=== PATIENT | male | born 1950 | race Caucasian/White ===

== ENCOUNTER 2019-06-23 06:24 | Inpatient (IN) ==
[2019-06-20 18:19] LABS: Amphetamine Screen,Urine NONE DETECTED (NONDETECTED); Barbiturate Screen,Urine NONE DETECTED (NONDETECTED); Benzodiazepines Screen,Urine NONE DETECTED (NONDETECTED); Cannabinoid Screen,Urine SUSPECT POSITIVE (NONDETECTED); Cocaine Screen,Urine NONE DETECTED (NONDETECTED); Opiate Screen,Urine NONE DETECTED (NONDETECTED); Oxycodone, Urine Screen NONE DETECTED (NONDETECTED); Phencyclidine Screen,Urine NONE DETECTED (NONDETECTED)
--- NOTE | 2019-06-20 18:32 | XRay Report ---
HISTORY: Preop for hernia repair FINDINGS: Patient has moderate COPD with pulmonary fibrosis. There are several bulla in the right upper lobe. There is no evidence of pneumonia, mass or congestive heart failure. The heart size is normal. No adenopathy is seen. Comparison with the prior chest CT done on 05/30/13 shows the COPD and pulmonary fibrosis have become worse. IMPRESSION: COPD with pulmonary fibrosis Interpreted and Authenticated by: Kyle Sargent 06/20/19
[2019-06-20 19:30] LABS: Basophils # (Auto) 0 K/mcL (0.0-0.3); Basophils % (Auto) 0.5 % (0.0-2.0); Eosinophils # (Auto) 0.1 K/mcL (0.0-0.7); Granulocytes % (Auto) 58.5 % (38.0-78.0); Hematocrit 47.6 % (41.0-55.0); Lymphocytes # (Auto) 2.8 K/mcL (1.5-4.8); Lymphocytes % (Auto) 32.8 % (15.5-49.0); Mean Cell Volume 95.9 fL (80.0-100.0); Mean Corpuscular HGB Conc 33.7 g/dL (31.0-36.0); Mean Platelet Volume 8.7 fL (7.4-10.4); Monocytes # (Auto) 0.6 K/mcL (0.1-0.9); Monocytes % (Auto) 7.2 % (1.0-12.0); Platelet Count 217 K/mcL (140-440); RBC 4.96 M/mcL (4.50-5.90); Red Cell Distribution Width 14.6 % (11.5-14.5); WBC 8.4 K/mcL (4.5-11.0)
[2019-06-20 19:49] LABS: ALT/SGPT 8 U/l (0-40); AST/SGOT 14 U/l (0-37); Albumin 4.5 gm/dL (3.2-5.2); Albumin/Globulin Ratio 1.4 (1.0-2.3); Alkaline Phosphatase 89 U/L (39-117); Bilirubin,Total 0.3 mg/dL (0.0-1.0); Blood Urea Nitrogen 6 mg/dl (8-23); Calcium 10.1 mg/dl (8.6-10.4); Carbon Dioxide 25 mmol/L (22-30); Chloride 99 mmol/L (96-108); Globulin 3.3 gm/dL (2.2-3.7); Glomerular Filtration Rate 89; Glucose 86 mg/dL (70-105)
[2019-06-20 19:50] LABS: INR 0.9 (0.9-1.1); Prothrombin Time 12.6 sec (11.9-14.5)
[2019-06-22 11:38] LABS: Alcohol, Blood < 10.0 mg/dL (<10); Alcohol,Blood < 0.010 gm/dl (<0.010)
[~2019-06-23 06:24] MED LIST: metroNIDAZOLE 500 MG/100 ML BAG IV SCH
[2019-06-23] MEDS ORDERED: VANCOMYCIN 1,000 MG in 0.9 % SODIUM CHLORIDE 250 ML IV SCH (07:00)
[2019-06-23] MEDS ORDERED: metroNIDAZOLE 500 MG/100 ML BAG IV SCH (07:00)
[2019-06-23] MEDS ORDERED: PHENYLEPHRINE 10 MG/ML VIAL IV ONE (08:55)
[2019-06-23] MEDS ORDERED: HYDROmorphone 2 MG/ML VIAL IV ONE (08:55)
[2019-06-23] MEDS ORDERED: KETAMINE 100 MG/ML ML IV ONE (08:55)
[2019-06-23] MEDS ORDERED: MIDAZOLAM 2 MG/2 ML VIAL IV ONE (08:55)
[2019-06-23] MEDS ORDERED: ROCURONIUM 10 MG/ML ML IV ONE (08:55)
[2019-06-23] MEDS ORDERED: ROPIVACAINE HCL/PF 30 ML VIAL IJ ONE (08:55)
[2019-06-23] MEDS ORDERED: PROPOFOL 200 MG/20 ML VIAL IV ONE (08:55)
[2019-06-23] MEDS ORDERED: SUGAMMADEX SODIUM 200 MG/2 ML VIAL IV ONE (08:55)
[2019-06-23] MEDS ORDERED: LIDOCAINE HCL/PF 100 MG/5 ML SYRINGE IV ONE (08:55)
[2019-06-23] MEDS ORDERED: GLYCOPYRROLATE 0.2 MG/ML VIAL IV ONE (08:55)
[2019-06-23] MEDS ORDERED: ONDANSETRON 4 MG/2 ML VIAL IV ONE (08:55)
[2019-06-23] MEDS ORDERED: BACITRACIN 50,000 UNIT VIAL IR ONE (09:20)
--- NOTE | 2019-06-23 10:49 | Brief Operative Note ---
Date of procedure: 06/23/19 Pre-op diagnosis: incisional hernia Post-op diagnosis: other (incisional hernia) Procedure: incisional hernia repair with mesh (15x22) Grafts/Implants: Yes (surgimesh [id number] oval skirted graft) Anesthesia: GETA Findings: total separation of incision from xyphoid to pubis extensive intraabdominal adhesions Complications: none Surgeon: Sharron Carlos Estimated blood loss (cc): 25 Specimens Removed/Pathology: none sent Condition: stable Disposition: PACU
[2019-06-23] MEDS ORDERED: ONDANSETRON 4 MG/2 ML VIAL IV PRN ×2 (10:51→11:00)
[2019-06-23] MEDS ORDERED: LORazepam 2 MG/ML VIAL IV PRN (10:58)
[2019-06-23] MEDS ORDERED: MEPERIDINE 25 MG/ML SYRINGE IV PRN (11:00)
[2019-06-23] MEDS ORDERED: ACETAMINOPHEN 1,000 MG/100 ML BOTTLE IV ONE (11:00)
[2019-06-23] MEDS ORDERED: BENZOCAINE/MENTHOL 1 LOZENGE PO PRN (11:00)
[2019-06-23] MEDS ORDERED: KETOROLAC 15 MG/ML VIAL IV PRN (11:00)
[2019-06-23] MEDS ORDERED: LORazepam 2 MG/ML VIAL IV ONE (11:00)
[2019-06-23] MEDS ORDERED: METOPROLOL TARTRATE 5 MG/5 ML VIAL IV PRN (11:00)
[2019-06-23] MEDS ORDERED: LACTATED RINGERS 1,000 ML IV SCH (11:00)
[2019-06-23] MEDS ORDERED: IPRATROPIUM/ALBUTEROL 3 ML AMPUL.NEB NEB PRN (11:00)
[2019-06-23] MEDS ORDERED: METHOCARBAMOL 1,000 MG/10 ML VIAL IV PRN (11:00)
[2019-06-23] MEDS ORDERED: HYDROmorphone 2 MG/ML VIAL IV PRN (11:00)
[2019-06-23] MEDS: fentaNYL 100 MCG/2 ML VIAL IV PRN ×2 (11:02→11:04)
[2019-06-23] MEDS ORDERED: fentaNYL 100 MCG/2 ML VIAL IV ONE (11:05)
[2019-06-23] MEDS: 0.9 % SODIUM CHLORIDE 1,000 ML IV SCH (12:01)
[2019-06-23] MEDS: 0.9 % SODIUM CHLORIDE 10 ML SYRINGE IV SCH ×2 (12:05→20:42)
[2019-06-23] MEDS: METOCLOPRAMIDE 10 MG/2 ML VIAL IV SCH ×3 (12:09→23:11)
[2019-06-23] MEDS: cefOXitin 2 GM VIAL IV SCH ×2 (12:09→20:42)
[2019-06-23] MEDS: HYDROmorphone 2 MG/ML VIAL IV PRN (20:19)
[2019-06-23] MEDS: VANCOMYCIN 1,000 MG in 0.9 % SODIUM CHLORIDE 250 ML IV SCH (20:41)
[2019-06-24] MEDS: 0.9 % SODIUM CHLORIDE 1,000 ML IV SCH ×2 (02:00→17:24)
[2019-06-24] MEDS: HYDROmorphone 2 MG/ML VIAL IV PRN ×5 (04:08→20:08)
[2019-06-24] MEDS: 0.9 % SODIUM CHLORIDE 10 ML SYRINGE IV SCH ×3 (04:09→20:08)
[2019-06-24] MEDS: METOCLOPRAMIDE 10 MG/2 ML VIAL IV SCH ×4 (05:45→23:13)
[2019-06-24 06:00] LABS: Basophils # (Auto) 0 K/mcL (0.0-0.3); Basophils % (Auto) 0.3 % (0.0-2.0); Eosinophils # (Auto) 0.1 K/mcL (0.0-0.7); Eosinophils % (Auto) 1.1 % (0.0-7.0); Granulocytes % (Auto) 68.7 % (38.0-78.0); Hematocrit 37.6 % (41.0-55.0); Hemoglobin 12.6 g/dL (13.5-16.5); Lymphocytes # (Auto) 1.6 K/mcL (1.5-4.8); Lymphocytes % (Auto) 24.4 % (15.5-49.0); Mean Cell Volume 97.2 fL (80.0-100.0); Mean Corpuscular HGB Conc 33.5 g/dL (31.0-36.0); Mean Platelet Volume 8.4 fL (7.4-10.4); Monocytes # (Auto) 0.4 K/mcL (0.1-0.9); Monocytes % (Auto) 5.5 % (1.0-12.0); Platelet Count 161 K/mcL (140-440); RBC 3.87 M/mcL (4.50-5.90); Red Cell Distribution Width 14.5 % (11.5-14.5); WBC 6.6 K/mcL (4.5-11.0)
[2019-06-24] MEDS: cefOXitin 2 GM VIAL IV SCH ×2 (08:12→20:07)
[2019-06-24] MEDS: VANCOMYCIN 1,000 MG in 0.9 % SODIUM CHLORIDE 250 ML IV SCH ×2 (09:23→20:07)
--- NOTE | 2019-06-24 11:58 | General Surgery Progress Note ---
Subjective Patient reports: feels better, still having pain, no flatus, no bowel movement, afebrile Narrative: Note initiated : 06/24/19 at 11:56 am Service Date, if different from initiated Date: [] Patient: Law Fish 68 y/o M admitted on 06/23/19 for Incisional Hernia Repair with Mesh. Chief Complaint: [Patient is doing amazingly well. He is alert and oriented 3. He does not have any irritation or agitation. He denies shortness of breath. He does have mild nausea which will be treated with Phenergan. Blood pressure 129/75, pulse 79. White blood count 6.6, hemoglobin 12.6, potassium 3.8, BUN 6, creatinine 0.9.] Objective Temp Pulse Resp BP Pulse Ox 98.4 F 66 20 129/75 93 06/24/19 11:43 06/24/19 04:12 06/24/19 11:43 06/24/19 11:43 06/24/19 11:43 - Additional Data Intake & Output - Last 24 hours: Intake & Output 06/22/19 06/23/19 06/24/19 06/25/19 05:59 05:59 05:59 05:59 Intake Total 3500 Output Total 1345 215 Balance 2155 -215 Weight 118 lb 8 oz 118 lb 8 oz - General physical appearance no distress, moderate pain - Eyes PERRL, normal ocular movement - ENT normal pinna, normal nares, normal mucosa, no hearing loss, no congestion - Neck no masses, no bruits, trachea midline, no lymphadenopathy, no venous distension - Respiratory normal expansion, normal respiratory effort, clear to auscultation - Cardiovascular Cardiovascular exam: Present: normal rate and rhythm, RRR, +S1, +S2. Absent: t achycardia - Abdomen tender (mild tenderness of the incision but otherwise abdomen is benign; he has good active bowel sounds; JOSEFINA drainage is serosanguineous) - Integumentary no rash, no growths, no abnormal pigmentation - Neurologic normal coordination, normal sensation - Musculoskeletal normal gait, normal posture - Psychiatric oriented to time, oriented to person, oriented to place, speech is normal, memory intact - Labs 06/24/19 04:45 06/20/19 16:31 Assessment and Plan (1) Incisional hernia of anterior abdominal wall without obstruction or gangrene Status: Acute Assessment and plan: Patient is clinically stable. His nausea will be treated with IV Phenergan. IV will be decreased to 50 cc/h Current Visit: Yes (2) Chronic alcoholism Status: Acute Assessment and plan: Continue beer up to 4 cans per day Current Visit: Yes - Time Spent With Patient Total time spent is greater than 50% in coordination of care (as documented) at patient's floor/unit and/or counseling patient:
[2019-06-24] MEDS: oxyCODONE HCL 5 MG TABLET PO PRN ×3 (13:51→23:14)
[2019-06-25] MEDS: HYDROmorphone 2 MG/ML VIAL IV PRN ×5 (00:43→20:11)
[2019-06-25] MEDS: METOCLOPRAMIDE 10 MG/2 ML VIAL IV SCH ×4 (05:12→23:54)
[2019-06-25] MEDS: 0.9 % SODIUM CHLORIDE 10 ML SYRINGE IV SCH ×3 (05:12→20:19)
[2019-06-25] MEDS: oxyCODONE HCL 5 MG TABLET PO PRN ×3 (07:53→23:54)
[2019-06-25] MEDS: 0.9 % SODIUM CHLORIDE 1,000 ML IV SCH (08:41)
[2019-06-25] MEDS: cefOXitin 2 GM VIAL IV SCH ×2 (08:51→20:10)
[2019-06-25] MEDS: VANCOMYCIN 1,000 MG in 0.9 % SODIUM CHLORIDE 250 ML IV SCH ×2 (08:51→20:11)
--- NOTE | 2019-06-25 14:22 | General Surgery Progress Note ---
Subjective Patient reports: feels better, pain is less, voiding w/o difficulty, flatus, no bowel movement, afebrile Narrative: Note initiated : 06/25/19 at 2:20 pm Service Date, if different from initiated Date: [] Patient: Law Fish 68 y/o M admitted on 06/23/19 for Incisional Hernia Repair with Mesh. Chief Complaint: [patient continues to do well he is afebrile. He has started to pass flatus but has not had a bowel movement. He denies nausea. His pain is controlled with present IV and oral analgesics.] Objective Temp Pulse Resp BP Pulse Ox 98.2 F 69 12 119/73 96 06/25/19 11:24 06/25/19 11:24 06/25/19 11:24 06/25/19 11:24 06/25/19 11:24 - Additional Data Intake & Output - Last 24 hours: Intake & Output 06/23/19 06/24/19 06/25/19 06/26/19 05:59 05:59 05:59 05:59 Intake Total 3500 3180 1580 Output Total 1345 2305 750 Balance 2155 875 830 Weight 118 lb 8 oz 118 lb 8 oz - General physical appearance well developed, well nourished, no distress - Eyes PERRL, normal ocular movement - ENT normal pinna, normal nares, normal mucosa, no hearing loss, no congestion - Neck no masses, no bruits, trachea midline, no lymphadenopathy, no venous distension - Respiratory normal expansion, normal respiratory effort, clear to auscultation, other (good active breath sounds bilaterally) - Cardiovascular Cardiovascular exam: Present: normal rate and rhythm, RRR, +S1, +S2. Absent: JVD, tachycardia - Abdomen tender ( mild incisional tenderness; incision looks good; active bowel sounds; JOSEFINA drainage with serosanguineous drainage) - Integumentary no rash, no growths, no abnormal pigmentation - Neurologic normal coordination, normal sensation - Musculoskeletal normal gait, normal posture - Psychiatric oriented to time, oriented to person, oriented to place, speech is normal, memory intact - Labs 06/24/19 04:45 06/20/19 16:31 Assessment and Plan (1) Incisional hernia of anterior abdominal wall without obstruction or gangrene Status: Acute Assessment and plan: Patient is clinically stable. Full liquid diet Saline lock IV Check labs in the morning Current Visit: Yes (2) Chronic alcoholism Status: Acute Assessment and plan: Continue beer up to 4 cans per day Current Visit: Yes - Time Spent With Patient Total time spent is greater than 50% in coordination of care (as documented) at patient's floor/unit and/or counseling patient:
[2019-06-26] MEDS: HYDROmorphone 2 MG/ML VIAL IV PRN (03:25)
[2019-06-26] MEDS: 0.9 % SODIUM CHLORIDE 10 ML SYRINGE IV SCH ×2 (05:01→12:21)
[2019-06-26] MEDS: METOCLOPRAMIDE 10 MG/2 ML VIAL IV SCH ×2 (05:01→11:24)
[2019-06-26 06:01] LABS: Basophils # (Auto) 0 K/mcL (0.0-0.3); Basophils % (Auto) 0.6 % (0.0-2.0); Eosinophils # (Auto) 0.2 K/mcL (0.0-0.7); Eosinophils % (Auto) 2.8 % (0.0-7.0); Granulocytes % (Auto) 56.4 % (38.0-78.0); Hematocrit 36.1 % (41.0-55.0); Hemoglobin 12.1 g/dL (13.5-16.5); Lymphocytes # (Auto) 1.8 K/mcL (1.5-4.8); Lymphocytes % (Auto) 30.5 % (15.5-49.0); Mean Cell Volume 97.4 fL (80.0-100.0); Mean Corpuscular HGB Conc 33.5 g/dL (31.0-36.0); Mean Platelet Volume 8.5 fL (7.4-10.4); Monocytes # (Auto) 0.6 K/mcL (0.1-0.9); Monocytes % (Auto) 9.7 % (1.0-12.0); Platelet Count 151 K/mcL (140-440); Red Cell Distribution Width 14.5 % (11.5-14.5)
[2019-06-26] MEDS: oxyCODONE HCL 5 MG TABLET PO PRN ×3 (07:28→16:53)
[2019-06-26 08:00] LABS: ALT/SGPT 6 U/l (0-40); AST/SGOT 13 U/l (0-37); Albumin 3.1 gm/dL (3.2-5.2); Albumin/Globulin Ratio 1.3 (1.0-2.3); Alkaline Phosphatase 65 U/L (39-117); Bilirubin,Direct < 0.2 mg/dL (0.0-0.3); Bilirubin,Total 0.3 mg/dL (0.0-1.0); Blood Urea Nitrogen 3 mg/dl (8-23); Calcium 9.3 mg/dl (8.6-10.4); Carbon Dioxide 25 mmol/L (22-30); Chloride 107 mmol/L (96-108); Globulin 2.4 gm/dL (2.2-3.7); Glomerular Filtration Rate 105; Glucose 99 mg/dL (70-105); Lactate Dehydrogenase 183 U/L (94-250); Phosphorous 2.4 mg/dL (2.7-4.5); Triglycerides 92 mg/dl (<150); Uric Acid 3.3 mg/dL (2.5-8.0)
[2019-06-26] MEDS: cefOXitin 2 GM VIAL IV SCH (09:14)
[2019-06-26] MEDS: VANCOMYCIN 1,000 MG in 0.9 % SODIUM CHLORIDE 250 ML IV SCH (09:14)
--- NOTE | 2019-06-26 15:04 | Discharge Summary ---
Providers - Providers Patient information: Note initiated : 06/26/19 at 3:00 pm Service Date, if different from initiated Date: [] Patient: Law Fish 68 y/o M admitted on 06/23/19 for Incisional Hernia Repair with Mesh. Chief Complaint: [] Date of admission: 06/23/19 Discharge date: 06/26/19 Attending physician: Sharron Carlos Hospitalization Hospital Course: 68-year-old male status post incisional hernia repair with mesh graft on 23 June 2019. She was found to have total separation of her midline incision from xiphoid to pubis with retraction of her muscle layers bilaterally. he had a 16 cm fascial defect at its greatest diameter. The patient had drains placed between the graft and the fascia as well as in the subcutaneous plane over the muscle. The drains have gradually decreased in size. A drain in the subcutaneous time he is playing is more serous. He has had flatus but no bowel movement. He is tolerating full liquid diet without difficulty. He has been afebrile. Patient has a history of chronic alcoholism. He drinks up to 12 beers per day every day. I have supplemented him with beer up to 4 beers per day and he has done well without any evidence of withdrawal. He is advised to try to limit his beer to 4-6 per day over the next 2 weeks. He will be followed up in the office in 2 weeks. Discharge diagnosis: incisional hernia Secondary discharge diagnosis: Chronic alcoholism Extensive intra-abdominal adhesions History of prostate cancer Peripheral nerve disease Major depression Reason for admission: postoperative major incisional hernia Procedures: Incisional hernia repair with mesh graft -- 15 x 22 cm skirted oval surgimesh Complications: 9 Exam Temp Pulse Resp BP Pulse Ox 98.4 F 72 16 144/80 98 06/26/19 11:31 06/26/19 11:31 06/26/19 11:31 06/26/19 11:31 06/26/19 11:31 - General physical appearance well developed, well nourished, no distress, no pain - Eyes PERRL, normal ocular movement - ENT normal pinna, normal nares, normal mucosa, no hearing loss, no congestion - Head Head exam IM: Present: atraumatic, normocephalic - Neck no masses, no bruits, trachea midline, no lymphadenopathy, no venous distension - Cardiovascular Cardiovascular exam IM: Present: normal rate and rhythm, RRR, +S1, +S2. Absent: JVD, tachycardia - Respiratory normal expansion, normal respiratory effort, clear to percussion, clear to auscultation - Abdomen Abdomen: Present: soft, tender (tender incision; good active bowel sounds; skin flaps look good; 2 JOSEFINA drains with serosanguineous drainage), bowel sounds Hernia: Present: none - Genitourinary Present: normal penis with no external lesions - Integumentary Present: no rash, no growths, no abnormal pigmentation - Neurologic Present: normal coordination, normal sensation - Musculoskeletal Present: normal gait, normal posture - Psychiatric Present: oriented to time, oriented to person, oriented to place, speech is normal, memory intact Discharge Plan - Patient/Caregiver Discharge Instructions Activity: increase activity as tolerated Diet: Regular Diet Additional Instructions: Leave dressing in place until your return to the office If the dressing gets wet contact the office to have the dressing changed Him to the JOSEFINA drain bulbs once or twice daily as needed Do not allow the bulbs to angle from the skin. attached the bulbs to your clothing so that they do not pull on the drains Try your best not to drink over 4 beers per day Prescriptions: oxyCODONE HCL/ACETAMINOPHEN [Endocet 10-325 mg Tablet] 1 tab PO Q4H PRN #90 tab PRN Reason: Pain Prescription Printed oxyCODONE HCL/ACETAMINOPHEN [Endocet 10-325 mg Tablet] 1 tab PO Q4H PRN #30 tab PRN Reason: Pain Prescription Printed - Follow up Plan Follow up with: Sharron Carlos MD [Physician] - 07/10/19 10:00 am Disposition: Home, Self-Care Prognosis: Good Rehab Potential: Good I certify that the patient requires SNF services.: No Overall status at discharge: patient is not back to baseline Pending Studies Resuscitation Status Full Code Diet Full Liquid Diet Start Sun Jun 25 1423 Cefoxitin Sodium (Mefoxin) 2 gm IV Q12H [facility]; Protocol Last Admin: 06/26/19 09:14 Dose: 2 gm Documented by: Admin: 06/25/19 20:10 Dose: 2 gm Documented by: Admin: 06/25/19 08:51 Dose: 2 gm Documented by: [email or web address] Admin: 06/24/19 20:07 Dose: 2 gm Documented by: Admin: 06/24/19 08:12 Dose: 2 gm Documented by: [facility] Admin: 06/23/19 20:42 Dose: 2 gm Documented by: Admin: 06/23/19 12:09 Dose: 2 gm Documented by: HANSEL Hydromorphone HCl (Dilaudid) 1 mg IV Q4HP PRN PRN Reason: PAIN LEVEL > 6 Last Admin: 06/26/19 03:25 Dose: 1 mg Documented by: Admin: 06/25/19 20:11 Dose: 1 mg Documented by: Admin: 06/25/19 15:48 Dose: 1 mg Documented by: [facility] Admin: 06/25/19 09:41 Dose: 1 mg Documented by: [facility] Admin: 06/25/19 04:46 Dose: 1 mg Documented by: Admin: 06/25/19 00:43 Dose: 1 mg Documented by: Admin: 06/24/19 20:08 Dose: 1 mg Documented by: Admin: 06/24/19 16:03 Dose: 1 mg Documented by: [facility] Admin: 06/24/19 12:00 Dose: 1 mg Documented by: [facility] Admin: 06/24/19 08:11 Dose: 1 mg Documented by: [facility] Admin: 06/24/19 04:08 Dose: 1 mg Documented by: Admin: 06/23/19 20:19 Dose: 1 mg Documented by: RJAENDRA Vancomycin HCl 1,000 mg/ (Sodium Chloride) 250 mls @ 250 mls/hr IV Q12H [facility]; Protocol Stop: 06/27/19 21:59 Last Infusion: 06/26/19 12:21 Dose: 0 mls/hr Documented by: Admin: 06/26/19 09:14 Dose: 250 mls/hr Documented by: Infusion: 06/25/19 21:11 Dose: 250 mls/hr Documented by: Admin: 06/25/19 20:11 Dose: 250 mls/hr Documented by: Infusion: 06/25/19 10:00 Dose: 0 mls/hr Documented by: [facility] Admin: 06/25/19 08:51 Dose: 250 mls/hr [facility]ed [facility]: [facility] Infusion: 06/24/19 21:15 Dose: 0 mls/hr Documented by: Admin: 06/24/19 20:07 Dose: 250 mls/hr Documented by: Infusion: 06/24/19 10:30 Dose: 0 mls/hr Documented by: Admin: 06/24/19 09:23 Dose: 250 mls/hr Documented by: [facility] Infusion: 06/23/19 21:41 Dose: 250 mls/hr Documented by: [facility] Admin: 06/23/19 20:41 Dose: 250 mls/hr Documented by: RAJENDRA Metoclopramide HCl (Reglan) 10 mg IV Q6 [facility] Last Admin: 06/26/19 11:24 Dose: 10 mg Documented by: Admin: 06/26/19 05:01 Dose: 10 mg Documented by: Admin: 06/25/19 23:54 Dose: 10 mg Documented by: Admin: 06/25/19 17:11 Dose: 10 mg Documented by: [facility] Admin: 06/25/19 11:25 Dose: 10 mg Documented by: [facility] [place] Admin: 06/25/19 05:12 Dose: 10 mg Documented by: Admin: 06/24/19 23:13 Dose: 10 mg Documented by: Admin: 06/24/19 17:26 Dose: 10 mg Documented by: [facility] [place] [place] Admin: 06/24/19 11:43 Dose: 10 mg Documented by: [facility] [place] Admin: 06/24/19 05:45 Dose: 10 mg Documented by: Admin: 06/23/19 23:11 Dose: 10 mg Documented by: Admin: 06/23/19 17:35 Dose: 10 mg Documented by: Admin: 06/23/19 12:09 Dose: 10 mg Documented by: HANSEL Oxycodone HCl (Roxicodone) 10 mg PO Q4HP PRN PRN Reason: PAIN LEVEL 3-6 Last Admin: 06/26/19 12:20 Dose: 10 mg Documented by: Admin: 06/26/19 07:28 Dose: 10 mg Documented by: Admin: 06/25/19 23:54 Dose: 10 mg Documented by: Admin: 06/25/19 17:11 Dose: 10 mg Documented by: [facility] Admin: 06/25/19 07:53 Dose: 10 mg Documented by: [facility] Admin: 06/24/19 23:14 Dose: 10 mg Documented by: Admin: 06/24/19 17:34 Dose: 10 mg Documented by: [facility] Admin: 06/24/19 13:51 Dose: 10 mg Documented by: [facility] Sodium Chloride (Saline Flush) 10 ml IV Q8 [facility] Admin: 06/26/19 12:21 Dose: 10 ml [facility] Admin: 06/26/19 05:01 Dose: 10 ml Documented by: Admin: 06/25/19 20:19 Dose: 10 ml Documented by: Admin: 06/25/19 13:06 Dose: Not Given Documented by: [facility] Admin: 06/25/19 05:12 Dose: Not Given Documented by: Admin: 06/24/19 20:08 Dose: Not Given Documented by: Admin: 06/24/19 13:07 Dose: Not Given Documented by: [facility] Admin: 06/24/19 04:09 Dose: Not Given Documented by: Admin: 06/23/19 20:42 Dose: Not Given Documented by: Admin: 06/23/19 12:05 Dose: Not Given Documented by: АНДРЕЙ Shift Summary 06/26/19 13:41 Shift Summary by Morenita Torres Addendum entered by Morenita Torres R.N. 06/26/19 13:55: Has SL to the LFA with intermittent ABOS Original Note: Pt is A/O. Up ad radha in the room and steady on his feet. Has had 10mg roxicodone for pain x2, with last dose around 1230- discussed with patient staying on top of pain and keeping it controlled with regular dosing of PO pain meds. Voids in the urinal, in the bathroom. No BM yet, but is passing gas, abdomen is soft, and bowel tones are active. Midline incision to abdomen has tish and tegaderm. RLQ and LLQ OJSEFINA drains intact with drain gauze and tegaderm- JOSEFINA B has been putting out more than JOSEFINA A since surgery. Have not emptied JOSEFINA drains yet this shift. Tolerating full liquids with no c/o nausea, and is allowed to have up to 4 beers a day to prevent Pt. from DTs. Pt would like to D/C home, but Dr. Carlos still needs to round on the Pt at this time. Initialized on 06/26/19 13:41 - END OF NOTE
[2019-06-26 20:08] LABS: Cannabinoid Confirmation POSITIVE (N)
--- NOTE | 2019-06-28 07:34 | Operative Note ---
DATE OF OPERATION: 06/23/2019 PREOPERATIVE DIAGNOSIS: Incisional hernia. POSTOPERATIVE DIAGNOSIS: Incisional hernia. PROCEDURE: Incisional hernia repair with mesh 15 x 22 cm. SURGEON: Sharron Carlos M.D. FINDINGS: 1. Total separation of incision from xiphoid to pubis. 2. Extensive intra-abdominal adhesions. DESCRIPTION OF PROCEDURE: Under general anesthesia, the patient's abdomen was prepped and draped in a sterile field. A time-out procedure was carried out as per protocol. The old midline incision was opened. Great care was taken not to injure the underlying bowel since the bowel was densely adherent in the subcutaneous plane. Using primarily Metzenbaum scissors, the bowel wall was from the skin and subcutaneous tissue carefully so that no enterotomies were made. The bowel was adherent throughout most of the incision. Once this was done, I was then able to separate the bowel from the peritoneum laterally on each side and inferiorly down into the pelvis. This was necessary to be able to place the mesh graft. Irrigation was carried out and all the bowel was inspected. There were no enterotomies and there was no evidence of serosal compromise. The skin was from the underlying retracted muscle back to its junction with the external obliques. The muscle was then gently stretched and it was felt that it would come to the midline if I used an interrupted suture for closure. A 15 x 22 oval skirted Surgimesh graft was chosen. It was placed intraperitoneally beneath the muscle layer. It had a coated posterior with silicone with intent that this would not adhere to the underlying viscera. The graft was sutured using the skirts with interrupted 0 Prolene circumferentially, taking care to leave areas between the sutures so as not to strangulate the muscle. The sutures were then tied without strangulation of the muscle. The skirts of the graft were then stapled to the underlying muscle and fascia using the secure strap mesh Tacker. All 25 tish were placed. Irrigation was carried out. A drain was placed over the mesh and brought out in the left lower quadrant. The muscle and fascia were then closed over the drain and graft using interrupted [id number] #1 Prolene. Irrigation was carried out. A drain was placed over the muscle and the skin and subcutaneous tissue were closed with running 2-0 Vicryl. Skin was closed with tish. A Tegaderm dressing was placed. The drains were secured with 2-0 nylon. The patient tolerated the procedure well. He was awakened, transferred to a bed and taken to the postanesthetic care unit in stable, satisfactory condition. LCS:spike Job ID: [id number] Doc ID: [id number] Sharron Carlos M.D.
== END 2019-06-26 16:55 | disposition home or self-care (01) | DRG 354 ==
LOC: SUR 06:24 → MEDSUR 06:25
PROVIDERS: ADMIT Family Medicine Adult Medicine; ATTEND Family Medicine Adult Medicine